=== PATIENT | male | born 1975 | race Caucasian/White ===

== ENCOUNTER 2024-06-24 15:59 | Inpatient (IN) | payer OTHER ==
[2024-06-24] MEDS ORDERED: NALOXONE 0.4 MG/ML 1 ML VIAL IV PRN (16:21)
--- NOTE | 2024-06-24 16:21 | ED ---
General Adult HPI - General Chief complaint: Extremity Problem,Nontraumatic Stated complaint: Blood clots Time Seen by Provider: 06/24/24 16:01 Source: patient, EMS, RN notes reviewed Mode of arrival: EMS Limitations: no limitations - History of Present Illness Initial comments: Patient is a 48-year-old male present to the emergency department with concern for DVT and PE. Patient was transferred from [place]. I did speak with Dr. Valadez. Patient has had complaint of left leg pain for the past 3 days. Patient does have history of similar symptoms previously with DVT. Patient is supposed to be on blood thinners however has been off blood thinners for a couple of years. Patient has also not taken his blood pressure medicine recently. Patient denies any chest pain or dyspnea. Patient was found to have extensive DVT with associated left-sided pulmonary embolism and was started on heparin - Related Data Home Medications Medication Instructions Recorded Confirmed Rivaroxaban [Xarelto Starter Pack] See Taper PO DIRECTED 06/24/24 06/24/24 amLODIPine [Norvasc] 5 mg PO DAILY 06/24/24 06/24/24 Allergies Allergy/AdvReac Type Severity Reaction Status Date / Time Penicillins Allergy Anaphylaxis Verified 06/24/24 16:25 Review of Systems ROS Statement: Those systems with pertinent positive or pertinent negative responses have been documented in the HPI. ROS Other: All systems not noted in ROS Statement are negative. Constitutional: Denies: fever Eyes: Denies: eye pain ENT: Denies: ear pain Respiratory: Denies: dyspnea Cardiovascular: Denies: chest pain Musculoskeletal: Reports: as per HPI. Denies: back pain Past Medical History Past Medical History: Deep Vein Thrombosis (DVT), Hypertension History of Any Multi-Drug Resistant Organisms: None Reported Past Surgical History: Appendectomy, Orthopedic Surgery, Tonsillectomy Past Psychological History: Anxiety Smoking Status: Current every day smoker Past Alcohol Use History: Occasional Past Drug Use History: Marijuana General Exam Limitations: no limitations General appearance: alert, in no apparent distress Head exam: Present: normocephalic Eye exam: Present: normal appearance Neck exam: Present: normal inspection Respiratory exam: Present: normal lung sounds bilaterally Cardiovascular Exam: Present: regular rate, normal rhythm Expanded Peripheral pulses: 2+: Femoral (L), Posterior Tibialis (L), Dorsalis Pedis (L) GI/Abdominal exam: Present: soft. Absent: tenderness Extremities exam: Present: calf tenderness (Left-sided) Neurological exam: Present: alert Psychiatric exam: Present: normal affect, normal mood Skin exam: Present: normal color Course Vital Signs 06/24/24 06/24/24 06/24/24 16:01 16:09 16:31 Temperature 98.8 F Pulse Rate 86 78 Respiratory 20 16 18 Rate Blood Pressure 175/122 167/109 O2 Sat by Pulse 99 97 Oximetry 06/24/24 17:07 Temperature 98.7 F Pulse Rate 83 Respiratory 20 Rate Blood Pressure 161/103 O2 Sat by Pulse 98 Oximetry EKG Findings - EKG Results: EKG: interpreted by ERMD (Right bundle branch block), sinus rhythm, normal axis, normal ST/T Medical Decision Making - Medical Decision Making Was pt. sent in by a medical professional or institution (, PA, MANUFACTURERS SERVICE REPRESENTATIVE, urgent care, hospital, or jail...) When possible be specific @ -Patient was sent from [facility] Did you speak to anyone other than the patient for history (EMS, parent, family, police, friend...)? What history was obtained from this source @ -I did speak with transferring physician Dr. Valadez regarding patient's presentation and results and reason for Did you review nursing and triage notes (agree or disagree)? Why? @ -[I reviewed and agree with nursing and triage notes] Were old charts reviewed (outside hosp., previous admission, EMS record, old EKG, old radiological studies, urgent care reports/EKG's, jail records)? Report findings @ -Chart reviewed from [facility] Differential Diagnosis (chest pain, altered mental status, abdominal pain women, abdominal pain men, vaginal bleeding, weakness, fever, dyspnea, syncope, headache, dizziness, GI bleed, back pain, seizure, CVA, palpatations, mental health, musculoskeletal)? @ -Differential Dyspnea: Coronary syndrome, arrhythmia, tamponade, asthma, COPD, pulmonary embolism, pneumonia, pneumothorax, pulmonary effusion, anaphylaxis, diabetic ketoacidosis, flailed chest, pulmonary contusion, diaphragmatic rupture, anemia, neuromuscular, this is not meant to be an all-inclusive list. EKG interpreted by me (3pts min.). @ -[As above] X-rays interpreted by me (1pt min.). @ -[None done] CT interpreted by me (1pt min.). @ -[None done] U/S interpreted by me (1pt. min.). @ -[None done] What testing was considered but not performed or refused? (CT, X-rays, U/S, labs)? Why? @ -[None] What meds were considered but not given or refused? Why? @ -Heparin will be continued Did you discuss the management of the patient with other professionals (professionals i.e. DrBharath, PA, MANUFACTURERS SERVICE REPRESENTATIVE, lab, RT, psych nurse, neonatal social worker, pharmacy technician trainee, teacher, air intelligence officer, bottle caser)? Give summary @ -Dr. Pitts who will admit covering Dr. Bella Was smoking cessation discussed for >3mins.? @ -[No] Was critical care preformed (if so, how long)? @ -33 minutes critical care time Were there social determinants of health that impacted care today? How? (Homelessness, low income, unemployed, alcoholism, drug addiction, transportation, low edu. Level, literacy, decrease access to med. care, custodial, rehab)? @ -[No] Was there de-escalation of care discussed even if they declined (Discuss DNR or withdrawal of care, Hospice)? DNR status @ -[No] What co-morbidities impacted this encounter? (DM, HTN, Smoking, COPD, CAD, Cancer, CVA, ARF, Chemo, Hep., AIDS, mental health diagnosis, sleep apnea, morbid obesity)? @ -History of DVT, not on any anticoagulation Was patient admitted / discharged? Hospital course, mention meds given and rout e, prescriptions, significant lab abnormalities, going to OR and other pertinent info. @ -Patient presents as a transfer with concern for pulmonary embolism and DVT. Patient on heparin. Patient will be admitted with pulmonary consult. Admission orders written. Undiagnosed new problem with uncertain prognosis? @ -[No] Drug Therapy requiring intensive monitoring for toxicity (Heparin, Nitro, In sulin, Cardizem)? @ -Heparin drip Were any procedures done? @ -[No] Diagnosis/symptom? @ -Pulmonary embolism, DVT Acute, or Chronic, or Acute on Chronic? @ -Acute, acute Uncomplicated (without systemic symptoms) or Complicated (systemic symptoms)? @ -[default] Side effects of treatment? @ -[No] Exacerbation, Progression, or Severe Exacerbation? @ -[No] Poses a threat to life or bodily function? How? (Chest pain, USA, OR, pneumonia, PE, COPD, DKA, ARF, appy, cholecystitis, CVA, Diverticulitis, Homicidal, Suicidal, threat to staff... and all critical care pts) @ -2 pulmonary function Critical Care Time Critical Care Time: Yes Disposition Clinical Impression: Pulmonary embolism, DVT (deep venous thrombosis) Disposition: ADMITTED IP TO THIS HOSP Is patient prescribed a controlled substance at d/c from ED?: No Time of Disposition: 17:12
[2024-06-24] MEDS: amLODIPine 5 MG TAB PO SCH (16:27)
[2024-06-24] MEDS: HEPARIN SOD,PORK IN 0.45% NACL 25,000 UNIT in 0.45% NACL 1 250ML.BAG IV SCH (16:59)
[2024-06-24] MEDS: METOPROLOL TARTRATE 25 MG TAB PO SCH (18:22)
[2024-06-24] MEDS: amLODIPine 5 MG TAB PO STA (18:22)
[2024-06-24] MEDS: MORPHINE SULFATE 4 MG/ML SYRINGE IVP STA (18:23)
[2024-06-24] MEDS: FAMOTIDINE 20 MG TAB PO SCH (18:23)
[2024-06-24] MEDS: hydrALAZINE HCL 20 MG/ML 1 ML VIAL IVP PRN (19:55)
[2024-06-24] MEDS: HYDROcodone/APAP 5-325MG 1 EACH TAB PO PRN (19:56)
[2024-06-24] MEDS: MORPHINE SULFATE 2 MG/ML SYRINGE IVP PRN (23:03)
[2024-06-24] MEDS: HEPARIN SODIUM 1,000 UN/ML (10ML VL) IV PRN (23:42)
[2024-06-25 06:35] LABS: Basophils # (A) 0.1 k/uL (0-0.2); Basophils % (A) 0 %; Eosinophils # (A) 0.6 k/uL (0-0.7); Eosinophils % (A) 4 %; HCT 41.9 % (39.0-53.0); HGB 14.5 gm/dL (13.0-17.5); INR 0.9 (<1.2); Lymphocytes # (A) 3.9 k/uL (1.0-4.8); Lymphocytes % (A) 29 %; MCH 34.2 pg (25.0-35.0); MCHC 34.6 g/dL (31.0-37.0); Mean Platelet Volume 8.9; Monocytes # (A) 0.8 k/uL (0-1.0); Monocytes % (A) 6 %; Neutrophils # (A) 7.9 k/uL (1.3-7.7); Neutrophils % (A) 59 %; Platelet Count 219 k/uL (150-450); Prothrombin Time 10.4 sec (10.0-12.5); RBC 4.23 m/uL (4.30-5.90); RDW 13.4 % (11.5-15.5); WBC 13.4 k/uL (3.8-10.6)
[2024-06-25 06:46] LABS: ALT 15 U/L (4-49); AST 19 U/L (17-59); African American GFR (CKD) >90 (>60 ml/min/1.73 sqM); Albumin 3.6 g/dL (3.5-5.0); Alkaline Phosphatase 54 U/L (38-126); Anion Gap 4 mmol/L; Blood Urea Nitrogen 7 mg/dL (9-20); Calcium 8.5 mg/dL (8.4-10.2); Carbon Dioxide 24 mmol/L (22-30); Chloride 108 mmol/L (98-107); Glucose 92 mg/dL (74-99); Non-African American GFR(CKD) >90 (>60 ml/min/1.73 sqM); Potassium 3.7 mmol/L (3.5-5.1); Sodium 136 mmol/L (137-145); Total Bilirubin 1.7 mg/dL (0.2-1.3); Total Protein 6.1 g/dL (6.3-8.2)
--- NOTE | 2024-06-25 08:11 | P.HPIM ---
History of Present Illness This is a pleasant 48 years old male with past medical history of right leg DVT about 2 years ago, he is supposed to be on Xarelto but he was not taking it for the last 2 years. Presents to [facility] for concerns of left leg venous thrombosis as his left leg was tender and his cough was hard. However patient denies chest pain dyspnea or coughing, no respiratory symptoms. At [place] he was found to have acute left DVT and acute pulmonary embolism, he was started on a blood thinner drip and transferred to this facility for higher level of care. Currently he is fully awake and oriented, he denies chest pain or dyspnea, he is saturating mid 90s on room air, he is not tachypneic. His left leg pain is moderate requesting pain medication. Denies any other GI/ symptoms. No headache dizziness weakness numbness Patient Currently patient is afebrile His blood pressure is stable INR is 1.0 We referred the records from [place] as follows: CTA of the chest showing positive pulmonary embolism in the left main pulmonary artery extending into the branches of NAVDEEP and LLL. There is evidence with right heart strain but there is no consolidation Ultrasound of the leg is positive for DVT in the left femoral and popliteal veins Urine analysis showing no infection Influenza A and type B, RSV, SARS (coronavirus) are and detected CPK is 50 which is within the reference range Sodium 143, potassium 4, chloride 107, sodium bicarb is 28, BUN 6, creatinine 0.9, glucose 90 WBC 13.6, hemoglobin 14.8, platelet 224. Liver function test within the reference range, INR 1.1 Troponin is negative at 2.5 with reference range 0-17.5 EKG showing sinus rhythm with no ST-T changes Currently patient is getting heparin drip Review of Systems Review of systems CONSTITUTIONAL: No fever, no malaise, no fatigue. HEENT: No recent visual problems or hearing problems. Denied any sore throat. CARDIOVASCULAR: No orthopnea, PND, no palpitations, no syncope. PULMONARY: No shortness of breath, no cough, no hemoptysis. GASTROINTESTINAL: No diarrhea, no nausea, no vomiting, no abdominal pain. Normoactive bowel sounds. NEUROLOGICAL: No headaches, no weakness, no numbness. HEMATOLOGICAL: Denies any bleeding or petechiae. GENITOURINARY: Denies any burning micturition, frequency, or urgency. MUSCULOSKELETAL/RHEUMATOLOGICAL: Denies any joint pain, swelling, or any muscle pain. ENDOCRINE: Denies any polyuria or polydipsia. Past Medical History Past Medical History: Deep Vein Thrombosis (DVT), Hypertension History of Any Multi-Drug Resistant Organisms: None Reported Past Surgical History: Appendectomy, Orthopedic Surgery, Tonsillectomy Additional Past Surgical History / Comment(s): Ankle surgery Smoking Status: Current some day smoker - Past Family History Father History Unknown: Yes Mother Additional Family Medical History / Comment(s): Blood clots Medications and Allergies Home Medications Medication Instructions Recorded Confirmed Type Rivaroxaban [Xarelto Starter Pack] See Taper PO DIRECTED 06/24/24 06/24/24 History amLODIPine [Norvasc] 5 mg PO DAILY 06/24/24 06/24/24 History Allergies Allergy/AdvReac Type Severity Reaction Status Date / Time Penicillins Allergy Anaphylaxis Verified 06/24/24 16:25 Physical Exam Vitals: Vital Signs Temp Pulse Pulse Resp BP BP Pulse Ox 06/25/24 04:00 98.4 F 69 17 117/69 97 06/25/24 02:00 77 19 06/25/24 00:00 98.2 F 83 17 161/95 100 06/24/24 21:28 133/97 06/24/24 20:00 98.4 F 80 19 190/108 97 06/24/24 17:35 98.3 F 82 18 202/100 100 06/24/24 17:07 98.7 F 83 20 161/103 98 06/24/24 16:31 78 18 167/109 97 06/24/24 16:09 16 06/24/24 16:01 98.8 F 86 20 175/122 99 Intake and Output 06/24/24 06/25/24 06/25/24 22:59 06:59 14:59 Intake Total 560 337.747 Balance 560 337.747 Intake: IV 20 10 Invasive Line 2 20 10 Intake, IV Titration 87.747 Amount Heparin Sod,Pork in 0.45% 87.747 NaCl 25,000 unit In 0.45 % NaCl 1 250ml.bag @ 18 UNITS/KG/HR 13.064 mls/hr IV .[id number] [facility] Rx#: [id number] Oral 540 240 Other: Voiding Method Toilet Toilet Urinal Urinal # Voids 2 Weight 72.575 kg 73.4 kg GENERAL: The patient is alert and oriented x3, not in any acute distress. Well developed, well nourished. HEENT: Pupils are round and equally reacting to light. EOMI. No scleral icterus. No conjunctival pallor. Normocephalic, atraumatic. No pharyngeal erythema. No thyromegaly. CARDIOVASCULAR: S1 and S2 present. No murmurs, rubs, or gallops. PULMONARY: Chest is clear to auscultation, no wheezing , no crackles. ABDOMEN: Soft, nontender, nondistended, normoactive bowel sounds. No palpable organomegaly. MUSCULOSKELETAL: No joint swelling or deformity. -EXTREMITIES: No cyanosis, clubbing, or pedal edema. Left leg mildly indurated NEUROLOGICAL: Gross neurological examination did not reveal any focal deficits. SKIN: No rashes. no petechiae. Results CBC & Chem 7: 06/25/24 05:38 06/25/24 05:38 Labs: Abnormal Lab Results - Last 24 Hours (Table) 06/24/24 06/24/24 06/25/24 Range/Units 16:22 22:30 05:38 WBC 13.4 H (3.8-10.6) k/uL RBC 4.23 L (4.30-5.90) m/uL Neutrophils # 7.9 H (1.3-7.7) k/uL APTT 38.7 H 38.7 H (22.0-30.0) sec Sodium (137-145) mmol/L Chloride (98-107) mmol/L BUN (9-20) mg/dL Total Bilirubin (0.2-1.3) mg/dL Total Protein (6.3-8.2) g/dL 06/25/24 06/25/24 Range/Units 05:38 05:38 WBC (3.8-10.6) k/uL RBC (4.30-5.90) m/uL Neutrophils # (1.3-7.7) k/uL APTT 51.0 H (22.0-30.0) sec Sodium 136 L (137-145) mmol/L Chloride 108 H (98-107) mmol/L BUN 7 L (9-20) mg/dL Total Bilirubin 1.7 H (0.2-1.3) mg/dL Total Protein 6.1 L (6.3-8.2) g/dL Thrombosis Risk Factor Assmnt - Choose All That Apply Any of the Below Risk Factors Present?: Yes Each Factor Represents 1 point: Age 41-60 years Other Risk Factors: Yes Each Risk Factor Represents 3 Points: Family history of DVT/PE, History of DVT/PE Other congenital or acquired thrombophilia - If yes, enter type in comment: No Thrombosis Risk Factor Assessment Total Risk Factor Score: 7 Thrombosis Risk Factor Assessment Level: High Risk Assessment and Plan Assessment: Acute left main pulmonary artery pulmonary embolism and acute left DVT History of right leg DVT Nonadherence/compliance to medication Nicotine dependence Possible alcohol use disorder Substance abuse with marijuana Plan: Continue with heparin drip Check echocardiogram pulmonary team consult Vascular surgery team consult Pain management Further recommendation based on the clinical course GI prophylaxis Pepcid DVT prophylaxis, he is already on treatment Prognosis is guarded
[2024-06-25] MEDS: amLODIPine 5 MG TAB PO SCH (08:14)
--- NOTE | 2024-06-25 09:50 | P.GSCN ---
History of Present Illness Consult date: 06/25/24 History of present illness: Patient is a 48-year-old male with a past medical history including multiple DVT and PE as well as family history of who was supposed to be on Xarelto. He is not compliant with this and not regularly taking it routinely. He recently began having increasing pain in his left lower extremity and tightness up in his thigh and decided to present to the ER. He was found to have a DVT popliteal to femoral per the report. A CTA of the chest was performed reportedly showing left pulmonary embolism, the reports charted as having possible right heart strain. Patient denies any significant shortness of breath. He is ambulated to the bathroom without issue. He has some mild discomfort in his left leg but overall no significant issue Past Medical History Past Medical History: Deep Vein Thrombosis (DVT), Hypertension History of Any Multi-Drug Resistant Organisms: None Reported Past Surgical History: Appendectomy, Orthopedic Surgery, Tonsillectomy Additional Past Surgical History / Comment(s): Ankle surgery Smoking Status: Current some day smoker - Past Family History Father History Unknown: Yes Mother Additional Family Medical History / Comment(s): Blood clots Medications and Allergies Home Medications Medication Instructions Recorded Confirmed Type Rivaroxaban [Xarelto Starter Pack] See Taper PO DIRECTED 06/24/24 06/24/24 Hi story amLODIPine [Norvasc] 5 mg PO DAILY 06/24/24 06/24/24 History Allergies Allergy/AdvReac Type Severity Reaction Status Date / Time Penicillins Allergy Anaphylaxis Verified 06/24/24 16:25 Surgical - Exam Vital Signs Temp Pulse Resp BP Pulse Ox 98.8 F 86 20 175/122 99 06/24/24 16:01 06/24/24 16:01 06/24/24 16:01 06/24/24 16:01 06/24/24 16:01 General Is a pleasant cooperative male in no acute distress resting comfortably on room air. No respiratory distress. Regular rate and rhythm. Abdomen is soft. Extremity showed no significant clubbing, cyanosis or edema. Palpable pedal pulses bilaterally Results - Labs 06/25/24 05:38 06/25/24 05:38 Abnormal Lab Results - Last 24 Hours (Table) 06/24/24 06/24/24 06/25/24 Range/Units 16:22 22:30 05:38 WBC 13.4 H (3.8-10.6) k/uL RBC 4.23 L (4.30-5.90) m/uL Neutrophils # 7.9 H (1.3-7.7) k/uL APTT 38.7 H 38.7 H (22.0-30.0) sec Sodium (137-145) mmol/L Chloride (98-107) mmol/L BUN (9-20) mg/dL Total Bilirubin (0.2-1.3) mg/dL Total Protein (6.3-8.2) g/dL 06/25/24 06/25/24 Range/Units 05:38 05:38 WBC (3.8-10.6) k/uL RBC (4.30-5.90) m/uL Neutrophils # (1.3-7.7) k/uL APTT 51.0 H (22.0-30.0) sec Sodium 136 L (137-145) mmol/L Chloride 108 H (98-107) mmol/L BUN 7 L (9-20) mg/dL Total Bilirubin 1.7 H (0.2-1.3) mg/dL Total Protein 6.1 L (6.3-8.2) g/dL Diabetes panel 06/25/24 Range/Units 05:38 Sodium 136 L (137-145) mmol/L Potassium 3.7 (3.5-5.1) mmol/L Chloride 108 H (98-107) mmol/L Carbon Dioxide 24 (22-30) mmol/L BUN 7 L (9-20) mg/dL Creatinine 0.74 (0.66-1.25) mg/dL Glucose 92 (74-99) mg/dL Calcium 8.5 (8.4-10.2) mg/dL AST 19 (17-59) U/L ALT 15 (4-49) U/L Alkaline Phosphatase 54 (38-126) U/L Total Protein 6.1 L (6.3-8.2) g/dL Albumin 3.6 (3.5-5.0) g/dL Calcium panel 06/25/24 Range/Units 05:38 Calcium 8.5 (8.4-10.2) mg/dL Albumin 3.6 (3.5-5.0) g/dL Pituitary panel 06/25/24 Range/Units 05:38 Sodium 136 L (137-145) mmol/L Potassium 3.7 (3.5-5.1) mmol/L Chloride 108 H (98-107) mmol/L Carbon Dioxide 24 (22-30) mmol/L BUN 7 L (9-20) mg/dL Creatinine 0.74 (0.66-1.25) mg/dL Glucose 92 (74-99) mg/dL Calcium 8.5 (8.4-10.2) mg/dL Adrenal panel 06/25/24 Range/Units 05:38 Sodium 136 L (137-145) mmol/L Potassium 3.7 (3.5-5.1) mmol/L Chloride 108 H (98-107) mmol/L Carbon Dioxide 24 (22-30) mmol/L BUN 7 L (9-20) mg/dL Creatinine 0.74 (0.66-1.25) mg/dL Glucose 92 (74-99) mg/dL Calcium 8.5 (8.4-10.2) mg/dL Total Bilirubin 1.7 H (0.2-1.3) mg/dL AST 19 (17-59) U/L ALT 15 (4-49) U/L Alkaline Phosphatase 54 (38-126) U/L Total Protein 6.1 L (6.3-8.2) g/dL Albumin 3.6 (3.5-5.0) g/dL Assessment and Plan Assessment: Acute left femoral-popliteal DVT Acute left lobe PE History of DVT and PE Noncompliance with anticoagulation Plan: I had a long discussion with Michael regarding the findings on his imaging. Currently he is clinically very stable without any supplementary oxygen nor any significant respiratory concerns. I believe he likely will be continued with conservative measures and anticoagulation rather than aggressive measures and thrombectomy based on his clinical status at this time. Await echo that has previously been ordered. I was not personally able to review the images, only a portion of the report in the chart from the previous hospital. Again clini lul overall the patient does not appear to need or have indication for pulmonary thrombectomy/thrombolysis based on clinical findings. This was discussed with him. He seemingly understands and did state he is going to plan to utilize his medication in a much more regular fashion
--- NOTE | 2024-06-25 11:06 | P.CNPUL ---
History of Present Illness Consult date: 06/25/24 Requesting physician: Tyler Harris Reason for consult: other Chief complaint: Left leg pain. History of present illness: Pulmonary consult dated June 25, 2024. 48-year-old male with a previous history of right lower extremity DVT, pulmonary embolism, who was treated for a period of 6 months, is transferred down from [facility], with left leg pain, which apparently revealed a DVT, and, a CT angiogram was done and revealed pulmonary emboli. The patient was only complaining of pain in the left leg and thigh area. He was not having any pulmonary complaints. He specifically denied any chest pain shortness of breath, etc. The ER physician apparently spoke to the physician, at the outside hospital. As mentioned above, the patient did take blood thinners for his previous right DVT and pulmonary emboli for about 6 months. Afterwards, the patient stopped the blood thinner, even though he apparently was told to continue the blood thinner. Apparently there is a family history of blood clots. The patient is currently seen, in room 354. He is on room air. He is receiving IV heparin. No IV fluids. His only other medical history is hypertension. Current labs include white count 13.4, hemoglobin 14.5, hematocrit 41.9, and a normal platelet count. Sodium 136, potassium 3.7, chlorides 108, CO2 24, BUN 7, creatinine 0.74. PTT is 51. Review of Systems REVIEW OF SYSTEMS: CONSTITUTIONAL: [Negative.] NEUROLOGIC: [ Negative.] HEENT: [ Negative.] CARDIAC: Left thigh, and left leg pain and swelling. PULMONARY: [Negative.] GI: [Negative.] : [Negative.] RHEUMATOLOGIC: [ Negative.] IMMUNOLOGIC: [ Negative.] ENDOCRINE: [Negative. ] DERMATOLOGIC: [Negative.] Past Medical History Past Medical History: Deep Vein Thrombosis (DVT), Hypertension History of Any Multi-Drug Resistant Organisms: None Reported Past Surgical History: Appendectomy, Orthopedic Surgery, Tonsillectomy Additional Past Surgical History / Comment(s): Ankle surgery Smoking Status: Current some day smoker - Past Family History Father History Unknown: Yes Mother Additional Family Medical History / Comment(s): Blood clots Medications and Allergies Home Medications Medication Instructions Recorded Confirmed Type Rivaroxaban [Xarelto Starter Pack] See Taper PO DIRECTED 06/24/24 06/24/24 History amLODIPine [Norvasc] 5 mg PO DAILY 06/24/24 06/24/24 History Allergies Allergy/AdvReac Type Severity Reaction Status Date / Time Penicillins Allergy Anaphylaxis Verified 06/24/24 16:25 Physical Exam Osteopathic Statement: *. No significant issues noted on an osteopathic structural exam other than those noted in the History and Physical/Consult. Vitals: Vital Signs Temp Pulse Pulse Resp BP BP Pulse Ox 06/25/24 08:20 98.2 F 85 20 172/98 99 06/25/24 04:00 98.4 F 69 17 117/69 97 06/25/24 02:00 77 19 06/25/24 00:00 98.2 F 83 17 161/95 100 06/24/24 21:28 133/97 06/24/24 20:00 98.4 F 80 19 190/108 97 06/24/24 17:35 98.3 F 82 18 202/100 100 06/24/24 17:07 98.7 F 83 20 161/103 98 06/24/24 16:31 78 18 167/109 97 06/24/24 16:09 16 06/24/24 16:01 98.8 F 86 20 175/122 99 Intake and Output 06/24/24 06/25/24 06/25/24 22:59 06:59 14:59 Intake Total 560 337.747 634.103 Output Total 500 Balance 560 337.747 134.103 Intake: IV 20 10 10 Invasive Line 2 20 10 10 Intake, IV Titration 87.747 124.103 Amount Heparin Sod,Pork in 0.45% 87.747 124.103 NaCl 25,000 unit In 0.45 % NaCl 1 250ml.bag @ 18 UNITS/KG/HR 13.064 mls/hr IV .Q19H9M [facility] Rx#: [id number] Oral 540 240 500 Output: Urine 500 Other: Voiding Method Toilet Toilet Toilet Urinal Urinal Urinal # Voids 2 1 Weight 72.575 kg 73.4 kg No acute distress, oriented 3. Currently on room air. No respiratory issues. HEENT examination is grossly unremarkable. Mucous membranes are moist. No oral lesions. Neck supple. Full range of motion. No adenopathy thyromegaly or neck vein distention. Cardiovascular examination reveals regular rhythm rate. S1-S2 normal. No S3 or S4. No discernible murmur noted. Lungs reveal clear breath sounds. Breath sounds are equal bilaterally. No adventitious lung sounds including wheezes rhonchi or crackles. Abdomen soft bowel sounds are heard. No masses or tenderness. Extremities are intact. No cyanosis clubbing or edema. Skin is without rash or lesion. Neurologic examination is brief but nonfocal. Results - Laboratory Findings CBC and BMP: 06/25/24 05:38 06/25/24 05:38 PT/INR, D-dimer PT 10.4 sec (10.0-12.5) 06/25/24 05:38 INR 0.9 (<1.2) 06/25/24 05:38 Abnormal lab findings: Abnormal Labs 06/24/24 06/24/24 06/25/24 16:22 22:30 05:38 WBC 13.4 H RBC 4.23 L Neutrophils # 7.9 H APTT 38.7 H 38.7 H Sodium Chloride BUN Total Bilirubin Total Protein 06/25/24 06/25/24 05:38 05:38 WBC RBC Neutrophils # APTT 51.0 H Sodium 136 L Chloride 108 H BUN 7 L Total Bilirubin 1.7 H Total Protein 6.1 L Assessment and Plan Assessment: Acute left leg DVT, and pulmonary embolism, as diagnosed at the outside hospital. Prior history of right lower extremity DVT and pulmonary emboli, treated for 6 months. History of hypertension. Family history of blood clots. Plan: Plan dated June 25, 2024. The patient is seen in room 354. The patient came to [facility] because of left leg pain and swelling. The patient was diagnosed as having a left lower extremity DVT, and pulmonary embolism. Scans from the outside hospital are not available. The patient is not having any respiratory issues whatsoever. The patient has a previous history of right lower extremity DVT, pulmonary embolism, and was told at that time, to stay on blood thinners for the rest of his life. There apparently is a family history of blood clots. The patient was seen by Dr. Saini and vascular surgery. Conservative treatment is recommended by her. I agree with that. The patient can likely be switched over to a factor Xa inhibitor tomorrow. The patient should be on blood thinners for the rest of his life. Echocardiogram is pending. Outside scans are also pending. Time with Patient: Greater than 30
[2024-06-25 11:39] LABS: Glucose,Whole Blood 97 mg/dL (70-110)
[2024-06-25] MEDS: ACETAMINOPHEN TAB 325 MG TAB PO PRN (12:02)
--- NOTE | 2024-06-26 07:40 | P.PN ---
Subjective This is a pleasant 48 years old male with past medical history of right leg DVT about 2 years ago, he is supposed to be on Xarelto but he was not taking it for the last 2 years. Presents to [facility] for concerns of left leg venous thrombosis as his left leg was tender and his cough was hard. However patient denies chest pain dyspnea or coughing, no respiratory symptoms. At [facility] he was found to have acute left DVT and acute pulmonary embolism, he was started on a blood thinner drip and transferred to this facility for higher level of care. Currently he is fully awake and oriented, he denies chest pain or dyspnea, he is saturating mid 90s on room air, he is not tachypneic. His left leg pain is moderate requesting pain medication. Denies any other GI/ symptoms. No headache dizziness weakness numbness Patient Currently patient is afebrile His blood pressure is stable INR is 1.0 We referred the records from [facility] as follows: CTA of the chest showing positive pulmonary embolism in the left main pulmonary artery extending into the branches of NAVDEEP and LLL. There is evidence with right heart strain but there is no consolidation Ultrasound of the leg is positive for DVT in the left femoral and popliteal veins Urine analysis showing no infection Influenza A and type B, RSV, SARS (coronavirus) are and detected CPK is 50 which is within the reference range Sodium 143, potassium 4, chloride 107, sodium bicarb is 28, BUN 6, creatinine 0.9, glucose 90 WBC 13.6, hemoglobin 14.8, platelet 224. Liver function test within the reference range, INR 1.1 Troponin is negative at 2.5 with reference range 0-17.5 EKG showing sinus rhythm with no ST-T changes Currently patient is getting heparin drip 06/26 Patient continue to feels better No chest pain or dyspnea or coughing, he is on room air, no respiratory difficulty Left leg pain is controlled His main concern is constipation requesting for stool softeners He remains on heparin drip currently. No plans for surgical thrombectomy per vascular surgery team Review of systems CONSTITUTIONAL: No fever, no malaise, no fatigue. HEENT: No recent visual problems or hearing problems. Denied any sore throat. CARDIOVASCULAR: No orthopnea, PND, no palpitations, no syncope. PULMONARY: No shortness of breath, no cough, no hemoptysis. GENITOURINARY: Denies any burning micturition, frequency, or urgency. MUSCULOSKELETAL/RHEUMATOLOGICAL: Denies any joint pain, swelling, or any muscle pain. ENDOCRINE: Denies any polyuria or polydipsia. Active Medications Generic Name Dose Route Start Last Admin Trade Name Freq PRN Reason Stop Dose Admin Acetaminophen 650 mg 06/24/24 16:21 06/25/24 12:02 Acetaminophen Tab 325 Mg Tab PO 650 mg Q6HR PRN Administration Mild Pain or Fever > 100.5 Hydrocodone Bitart/Acetaminophen 1 each 06/24/24 18:03 06/25/24 23:54 Hydrocodone/Apap 5-325mg 1 Each Tab PO 1 each Q6HR PRN Administration Pain Amlodipine Besylate 10 mg 06/25/24 09:00 06/25/24 08:14 Amlodipine 5 Mg Tab PO 10 mg DAILY TESSIE Administration Famotidine 20 mg 06/24/24 21:00 06/25/24 21:47 Famotidine 20 Mg Tab PO 20 mg BID TESSIE Administration Heparin Sodium (Porcine) 0 unit 06/24/24 16:21 06/24/24 23:42 Heparin Sodium 1,000 Un/Ml (10ml Vl) IV 2,900 unit PER PROTOCOL PRN Administration Low PTT Protocol Hydralazine HCl 10 mg 06/24/24 18:02 06/24/24 19:55 Hydralazine Hcl 20 Mg/Ml 1 Ml Vial IVP 10 mg Q4HR PRN Administration Blood Pressure - High Heparin Sodium/Sodium Chloride 250 mls @ 13.064 mls/hr 06/24/24 16:30 06/25/24 23:53 25,000 unit/ Sodium Chloride IV 20 units/kg/hr .Q19H9M TESSIE 14.515 mls/hr Administration Protocol 18 UNITS/KG/HR Metoprolol Tartrate 25 mg 06/24/24 18:04 06/25/24 21:47 Metoprolol Tartrate 25 Mg Tab PO 25 mg BID TESSIE Administration Morphine Sulfate 2 mg 06/24/24 18:02 06/26/24 04:20 Morphine Sulfate 2 Mg/Ml Syringe IVP 2 mg Q4HR PRN Administration Pain/Discomfort Naloxone HCl 0.2 mg 06/24/24 16:21 Naloxone 0.4 Mg/Ml 1 Ml Vial IV Q2M PRN Opioid Reversal Objective - Vital Signs Vital signs: Vital Signs Temp 98.4 F 10/14/24 04:00 Pulse 71 06/26/24 04:00 Resp 17 06/26/24 04:00 BP 126/74 06/26/24 04:00 Pulse Ox 96 06/26/24 04:00 FiO2 Intake & Output 06/25/24 06/26/24 06/26/24 18:59 06:59 18:59 Intake Total 1004.103 726.918 Output Total 500 Balance 504.103 726.918 Weight 72.4 kg Intake: IV 20 20 Invasive Line 2 20 20 Intake, IV Titration 124.103 226.918 Amount Heparin Sod,Pork in 0.45% 124.103 226.918 NaCl 25,000 unit In 0.45 % NaCl 1 250ml.bag @ 18 UNITS/KG/HR 13.064 mls/hr IV .Q19H9M [facility] Rx#: [id number] Oral 860 480 Output: Urine 500 Other: Voiding Method Toilet Toilet Urinal Urinal # Voids 1 2 - Exam GENERAL: The patient is alert and oriented x3, not in any acute distress. Well developed, well nourished. HEENT: Pupils are round and equally reacting to light. EOMI. No scleral icterus. No conjunctival pallor. Normocephalic, atraumatic. No pharyngeal erythema. No thyromegaly. CARDIOVASCULAR: S1 and S2 present. No murmurs, rubs, or gallops. PULMONARY: Chest is clear to auscultation, no wheezing , no crackles. ABDOMEN: Soft, nontender, nondistended, normoactive bowel sounds. No palpable organomegaly. MUSCULOSKELETAL: No joint swelling or deformity. EXTREMITIES: No cyanosis, clubbing, or pedal edema. NEUROLOGICAL: Gross neurological examination did not reveal any focal deficits. SKIN: No rashes. no petechiae. - Labs CBC & Chem 7: 06/25/24 05:38 06/25/24 05:38 Labs: Abnormal Lab Results - Last 24 Hours (Table) 06/26/24 Range/Units 06:01 APTT 47.3 H (22.0-30.0) sec Assessment and Plan Assessment: Acute left main pulmonary artery pulmonary embolism and acute left DVT History of right leg DVT Nonadherence/compliance to medication Constipation Nicotine dependence Possible alcohol use disorder Substance abuse with marijuana Plan: Continue with heparin drip Check echocardiogram pulmonary team consult Vascular surgery team consult, no surgical intervention recommended Stool softeners added Pain management Further recommendation based on the clinical course GI prophylaxis Pepcid DVT prophylaxis, he is already on treatment Prognosis is guarded
[2024-06-26 07:55] LABS: HCT 46.2 % (39.0-53.0); MCH 33.1 pg (25.0-35.0); MCHC 32.6 g/dL (31.0-37.0); MCV 101.5 fL (80.0-100.0); Macrocytosis Slight; Mean Platelet Volume 8.5; Platelet Count 299 k/uL (150-450); RBC 4.55 m/uL (4.30-5.90); WBC 11.6 k/uL (3.8-10.6)
[2024-06-26] MEDS: polyethylene glycoL 3350 17 GM POWD.PACK PO STA (09:02)
[2024-06-26] MEDS: DOCUSATE 100 MG CAP PO SCH (09:02)
[2024-06-26] MEDS: Rivaroxaban Initiation Dose--VTE 15 MG TAB PO SCH (09:08)
--- NOTE | 2024-06-26 09:29 | P.PN ---
Subjective Progress Note Date: 06/26/24 Principal diagnosis: Lower extremity DVT, pulmonary embolism Patient is seen and examined today as a follow-up. He denies any shortness of breath or chest pain. No lower extremity pain. Currently has heparin drip infusing. He is not requiring any supplemental oxygen. Oxygen saturation in the 8% on room air. Dates he has not been on anticoagulation in 2 years. He believes he has Xarelto starter pack at his pharmacy called in from the emergency department and [place]. Objective - Vital Signs Vital signs: Vital Signs Temp 98.4 F 06/26/24 04:00 Pulse 71 06/26/24 04:00 Resp 17 06/26/24 04:00 BP 126/74 06/26/24 04:00 Pulse Ox 96 06/26/24 04:00 FiO2 Intake & Output 06/25/24 06/26/24 06/26/24 18:59 06:59 18:59 Intake Total 1004.103 726.918 356 Output Total 500 Balance 504.103 726.918 356 Weight 72.4 kg Intake: IV 20 20 Invasive Line 2 20 20 Intake, IV Titration 124.103 226.918 Amount Heparin Sod,Pork in 0.45% 124.103 226.918 NaCl 25,000 unit In 0.45 % NaCl 1 250ml.bag @ 18 UNITS/KG/HR 13.064 mls/hr IV .Q19H9M [facility] Rx#: [id number] Oral 860 480 356 Output: Urine 500 Other: Voiding Method Toilet Toilet Urinal Urinal # Voids 1 2 - Exam General appearance: The patient is alert, oriented, appears in no acute distress. HET: Head is normocephalic and atraumatic. Pupils are equal and reactive. Neck: Supple. Heart: Regular. Lungs: Equal expansion, normal respiratory effort. Abdomen: Soft, nontender, nondistended. Extremities: Normal skin color and turgor. No lower extremity edema. Palpable DP pulses bilaterally Neurological: No focal deficits. Strength and sensation are grossly intact. - Labs CBC & Chem 7: 06/26/24 06:01 06/25/24 05:38 Labs: Abnormal Lab Results - Last 24 Hours (Table) 06/26/24 06/26/24 Range/Units 06:01 06:01 WBC 11.6 H (3.8-10.6) k/uL MCV 101.5 H (80.0-100.0) fL APTT 47.3 H (22.0-30.0) sec Assessment and Plan Assessment: Acute left femoral-popliteal DVT Acute left lobe PE History of DVT and PE Noncompliance with anticoagulation Smoker Plan: 1. May discontinue heparin and start anticoagulation 2. Discussed with patient importance of medication compliance and that he will need to continue anticoagulation for the rest of his life 3. Recommend smoking cessation 4. Echocardiogram reviewed, normal RVSP no evidence of right heart strain. 5. No indication fo right heart strainr any vascular surgical intervention Patient is cleared for discharge from vascular surgery for discharge. The impression and plan of care has been dictated as directed. I performed a history and examination of this patient, discussed the same with the dictator. I agree with the dictator's note ,documented as a scribe. Any additional findings or plans will be noted.
--- NOTE | 2024-06-26 11:45 | CA ---
Transthoracic Echo Report Name: Michael Shaw Age: 48 Gender: M : 1975 Exam Date: 06/26/2024 07:59 Exam Location: [facility] Ht (in): 70 Wt (lb): 161 Ordering Physician: Tyler Harris MD Attending/Referring Phys: [id number], Kimberly Technical Associate Rola Iglesias RDCS Procedure CPT: Indications: Left leg pain and PE Cardiac Hx: Technical Quality: Fair Contrast 1: Total Dose (mL): Contrast 2: Total Dose (mL): MEASUREMENTS (Male / Female) Normal Values 2D ECHO LV Diastolic Diameter PLAX 5.1 cm 4.2 - 5.9 / 3.9 - 5.3 cm LV Systolic Diameter PLAX 3.4 cm IVS Diastolic Thickness 0.7 cm 0.6 - 1.0 / 0.6 - 0.9 cm LVPW Diastolic Thickness 1.0 cm 0.6 - 1.0 / 0.6 - 0.9 cm LV Relative Wall Thickness 0.3 LVOT Diameter 2.0 cm LV Diastolic Volume MOD 4C 141.5 cm??? LV Systolic Volume MOD 4C 57.8 cm??? LV Ejection Fraction MOD 4C 59.1 % LV Cardiac Index MOD 4C 2993.3 cm???/min???m??? LV Diastolic Length 4C 8.8 cm LV Systolic Length 4C 7.1 cm LA Volume 45.4 cm??? 18 - 58 / 22 - 52 cm??? LA Volume Index 23.9 cm???/m??? 16 - 28 cm???/m??? Ascending Aorta Diameter 3.5 cm DOPPLER AV Peak Velocity 97.8 cm/s AV Peak Gradient 3.8 mmHg AV Mean Velocity 72.7 cm/s AV Mean Gradient 2.3 mmHg AV Velocity Time Integral 20.7 cm LVOT Peak Velocity 92.0 cm/s LVOT Peak Gradient 3.4 mmHg LVOT Velocity Time Integral 18.1 cm LVOT Stroke Volume 57.3 cm??? LVOT Stroke Volume Index 30.1 ml/m??? LVOT Cardiac Index 2050.6 cm???/min???m??? AV Area Cont Eq vti 2.8 cm??? AV Area Cont Eq pk 3.0 cm??? MV Area PHT 3.5 cm??? Mitral E Point Velocity 47.0 cm/s Mitral A Point Velocity 45.1 cm/s Mitral E to A Ratio 1.0 MV Deceleration Time 215.1 ms TR Peak Velocity 234.8 cm/s TR Peak Gradient 22.1 mmHg Right Atrial Pressure 10.0 mmHg Pulmonary Artery Systolic Pressu 32.1 mmHg Right Ventricular Systolic Press 32.1 mmHg PV Peak Velocity 71.5 cm/s PV Peak Gradient 2.0 mmHg FINDINGS Left Ventricle Left ventricular ejection fraction is estimated at 55-60 %. Left ventricular cavity size normal. Left ventricular wall thickness normal. No obvious regional wall motion abnormalities. Right Ventricle Borderline enlarged right ventricular dilatation with normal function. Right ventricular systolic pressure within normal limits. Right Atrium Normal right atrial size. Left Atrium Normal left atrial size. Mitral Valve Structurally normal mitral valve. No mitral stenosis, regurgitation or prolapse. Aortic Valve Trileaflet aortic valve. No aortic valve stenosis or regurgitation. Tricuspid Valve Structurally normal tricuspid valve. No tricuspid stenosis. Mild tricuspid regurgitation. Pulmonic Valve Structurally normal pulmonic valve. No pulmonic stenosis. No pulmonic regurgitation. Pericardium No pericardial effusion. Aorta Normal size aortic root and proximal ascending aorta. CONCLUSIONS Normal LV ejection fraction 55-60% Borderline right ventricular dilation with normal function, normal RVSP No mitral regurgitation Mild tricuspid regurgitation No pericardial effusion Previewed by: Dr. Donaldo Roa DO (Electronically Signed) Final Date: 26 June 2024 11:44
[2024-06-26 12:59] VITALS: BP 120/80; PULSE 73; RESP 18; TEMP 97.9
--- NOTE | 2024-06-26 14:36 | P.PN ---
Subjective Progress Note Date: 06/26/24 48-year-old male with a previous history of right lower extremity DVT, pulmonary embolism, who was treated for a period of 6 months, is transferred down from [facility], with left leg pain, which apparently revealed a DVT, and, a CT angiogram was done and revealed pulmonary emboli. The patient was only complaining of pain in the left leg and thigh area. He was not having any pulmonary complaints. He specifically denied any chest pain shortness of breath, etc. The ER physician apparently spoke to the physician, at the outside hospital. As mentioned above, the patient did take blood thinners for his previous right DVT and pulmonary emboli for about 6 months. Afterwards, the patient stopped the blood thinner, even though he apparently was told to continue the blood thinner. Apparently there is a family history of blood clots. The patient is currently seen, in room 354. He is on room air. He is receiving IV heparin. No IV fluids. His only other medical history is hyperte nsion. Current labs include white count 13.4, hemoglobin 14.5, hematocrit 41.9, and a normal platelet count. Sodium 136, potassium 3.7, chlorides 108, CO2 24, BUN 7, creatinine 0.74. PTT is 51. 06/26/2024, the patient is being seen for a follow-up., Comfortable and the patient is currently on anticoagulation with Xarelto. Denies having any other specific complaints. He is on room air oxygen. No chest pain. No pleurisy. No hemoptysis. Echocardiogram was also done and the patient was found to have a preserved LV function, borderline enlargement of the right ventricle with normal function. Right ventricular pressures are essentially within normal limits. The patient remains hemodynamically stable. Hemoglobin 15 with a white cell count of 11 and a platelet count of 299. Electrolytes are all within normal limits. Objective - Vital Signs Vital signs: Vital Signs Temp 98 F 06/26/24 08:00 Pulse 79 06/26/24 10:10 Resp 16 06/26/24 10:10 BP 158/81 06/26/24 08:00 Pulse Ox 98 06/26/24 08:00 FiO2 Intake & Output 06/25/24 06/26/24 06/26/24 18:59 06:59 18:59 Intake Total 1004.103 726.918 356 Output Total 500 100 Balance 504.103 726.918 256 Weight 72.4 kg Intake: IV 20 20 Invasive Line 2 20 20 Intake, IV Titration 124.103 226.918 Amount Heparin Sod,Pork in 0.45% 124.103 226.918 NaCl 25,000 unit In 0.45 % NaCl 1 250ml.bag @ 18 UNITS/KG/HR 13.064 mls/hr IV .Q19H9M [facility] Rx#: [id number] Oral [id number] [id number] Output: Urine 500 100 Other: Voiding Method Toilet Toilet Toilet Urinal Urinal Urinal # Voids 1 2 - Exam No acute distress, oriented 3. Currently on room air. No respiratory issues. HEENT examination is grossly unremarkable. Mucous membranes are moist. No oral lesions. Neck supple. Full range of motion. No adenopathy thyromegaly or neck vein distention. Cardiovascular examination reveals regular rhythm rate. S1-S2 normal. No S3 or S4. No discernible murmur noted. Lungs reveal clear breath sounds. Breath sounds are equal bilaterally. No adventitious lung sounds including wheezes rhonchi or crackles. Abdomen soft bowel sounds are heard. No masses or tenderness. Extremities are intact. No cyanosis clubbing or edema. Skin is without rash or lesion. Neurologic examination is brief but nonfocal. - Labs CBC & Chem 7: 06/26/24 06:01 06/25/24 05:38 Labs: Abnormal Lab Results - Last 24 Hours (Table) 06/26/24 06/26/24 Range/Units 06:01 06:01 WBC 11.6 H (3.8-10.6) k/uL MCV 101.5 H (80.0-100.0) fL APTT 47.3 H (22.0-30.0) sec Assessment and Plan Plan: Acute left leg DVT, and pulmonary embolism, as diagnosed at the outside hospital. No significant RV strain and the patient remains hemodynamically stable on room air oxygen. This is a recurrent event and the patient had previous history of DVT and pulmonary embolism approximately 2 years ago and the patient has been off anticoagulants. Prior history of right lower extremity DVT and pulmonary emboli, treated for 6 months. History of hypertension. Family history of blood clots. 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
== END 2024-06-26 15:07 | disposition home or self-care (01) | DRG 197 ==
LOC: EC 15:59 → 3SCARD 16:21
PROVIDERS: ADMIT Internal Medicine; ATTEND Internal Medicine
DX: I82.412 Acute embolism and thrombosis of left femoral vein (principal); I26.99 Other pulmonary embolism without acute cor pulmonale; I82.432 Acute embolism and thrombosis of left popliteal vein; F12.10 Cannabis abuse, uncomplicated; F17.200 Nicotine dependence, unspecified, uncomplicated; I10 Essential (primary) hypertension; K59.00 Constipation, unspecified; T45.516A Underdosing of anticoagulants, initial encounter; Z91.128 Patient's intentional underdosing of medication regimen for other reason; Z79.01 Long term (current) use of anticoagulants; Z79.899 Other long term (current) drug therapy; Z86.711 Personal history of pulmonary embolism; Z86.718 Personal history of other venous thrombosis and embolism
CPT/HCPCS: 36415; 80053; 85025; 85027; 85610; 85730; 93005; 93306; 96374; 99285